=== PATIENT | female | born 1950 | race Two or more races ===

== ENCOUNTER 2024-10-05 16:25 | Emergency (ER) | payer OTHER ==
[~2024-10-05] VITALS: Ht 162.6 cm; Wt 50.3 kg
--- NOTE | 2024-10-05 16:34 | ED.PDOC ---
History of Present Illness HPI Comments 74 year old female presents to the ED with a chief complaint of fall injury onset today. Patient states she was sitting on a bench, in her front yard when she fell forward. Patient hit her forehead, currently has a laceration forehead, bruising around bilateral eyes. Denies any PMHx as well as LOC, nausea, v omiting, diarrhea, chest pain, shortness of breath, blurry vision. No other symptoms or modifying factors present at this time. Bleeding was controlled at time of evaluation. Time Seen by MD: 16:28 Reviewed Notes: Nurses Notes, Medications, Allergies Information Source: Patient, Spouse Mode of Arrival: Ambulatory Severity: Moderate Timing: Hours Duration: Since onset Prehospital treatment: None Past Medical History PAST MEDICAL HISTORY: Denies Surgical History: Denies all surgeries RODENT EXTERMINATOR History: No Pertinent RODENT EXTERMINATOR History Family History Family History: Reviewed,noncontributory to illness, No family hx of Cancer, No family hx of DM, No family hx of Heart gilberto, No family hx of HTN, No family hx ofKidney gilberto, No family hx of Liver gilberto, No family hx of Lung gilberto, No family hx of Stroke Social History Smoker: Non-Smoker Alcohol: Denies ETOH Use Drugs: Denies Drug Use Lives In: Home Constitutional: denies: chills, diaphoresis, fatigue, fever, malaise, sweats, weakness, others EENTM: denies: blurred vision, double vision, ear bleeding, ear discharge, ear drainage, ear pain, ear ringing, eye pain, eye redness, hearing loss, mouth pain, mouth swelling, nasal discharge, nose bleeding, nose congestion, nose pain, photophobia, tearing, throat pain, throat swelling, voice changes, others Respiratory: denies: cough, hemoptysis, orthopnea, SOB at rest, shortness of breath, SOB with excertion, stridor, wheezing, others Cardiovascular: denies: chest pain, dizzy spells, diaphoresis, Dyspnea on exertion, edema, irregular heart beat, left arm pain, lightheadedness, palp itations, PND, syncope, others Gastrointestinal: denies: abdomen distended, abdominal pain, blood streaked bowels, constipated, diarrhea, dysphagia, difficulty swallowing, hematemesis, melena, nausea, poor appetite, poor fluid intake, rectal bleeding, rectal pain, vomiting, others Genitourinary: denies: abnormal vagina bleeding, burning, dyspareunia, dysuria, flank pain, frequency, hematuria, incontinence, pain, , vagina discharge, urgency, others Neurological: reports: headache; denies: dizziness, fainting, left sided numbness, left sided weakness, numbness, paresthesia, pre-existing deficit, right sided numbness, right sided weakness, seizure, speech problems, tingling, tremors, weakness, others Musculoskeletal: denies: back pain, gout, joint pain, joint swelling, muscle pain, muscle stiffness, neck pain, others Integumetry: reports: bruises, laceration (forehead); denies: change in color, change in hair/nails, dryness, lesions, lumps, rash, wounds, others Allergic/Immunocompromised: denies: Difficulty Healing, Frequent Infections, Hives, Itching, others Hematologic/Lymphatic: denies: anemia, blood clots, easy bleeding, easy bruising, swollen glands, others Endocrine: denies: excessive hunger, excessive sweating, excessive thirst, excessive urination, flushing, intolerance to cold, intolerance to heat, unexplained weight gain, unexplained weight loss, others Psychiatric: denies: anxiety, bipolar disorder, depression, hopeless, panic disorder, schizophrenia, sleepless, suicidal, others All Other Systems: Reviewed and Negative Physical Exam General Appearance: Moderate Distress (Due to headache pain and anxiety related to her forehead laceration.), Normal HEENT: Head ( Patient arrives with a 8-10 cm laceration that extends up from the right side of her forehead to the hairline and moves laterally. No active bleed. No skull depressions or definitive deformities noted. Patient does have some ecchymosis on her left eye which he states is from a prior injury.), Normal ENT Inspection, Pharynx Normal, TMs Normal Neck: Full Range of Motion, Non-Tender, Normal, Normal Inspection Respiratory: Chest Non-Tender, Lungs Clear, No Accessory Muscle Use, No Respiratory Distress, Normal Breath Sounds Cardiovascular: No Edema, No JVD, No Murmur, No Gallop, Normal Peripheral Pulses, Regular Rate/Rhythm Breast Exam: Deferred Gastrointestinal: No Organomegaly, Non Tender, No Pulsatile Mass, Normal Bowel Sounds, Soft Genitalia: Deferred Pelvic: Deferred Rectal: Deferred Extremities: No calf tenderness, Normal capillary refill, No pedal edema Musculoskeletal : Apperance: Normal Neurologic: Alert, No Motor Deficits, Normal Affect, Normal Mood, No Sensory Deficits Cerebellar Function: NOT DONE Reflexes: NOT DONE Skin: Dry, Lacerations ( See HEENT for description of forehead laceration), Normal Color, Warm Lymphatic: No Adenopathy Was a procedure done? Was a procedure done?: Yes Sedation Sedation?: No Other Procedure Notes Closure of an 8-10 cm L-shaped laceration on the right side of the forehead extending into the hairline and then moving laterally towards the temporal region. 16 cc of 1% lidocaine was utilized for local anesthesia. Sterile field was placed. Copious irrigation performed. Twenty three 5-0 Ethilon sutures were utilized in a simple interrupted fashion to close the laceration. Minimal to moderate blood loss. Patient tolerated procedure well. Clean dressing applied. Differential Dx Considerations may include: Skull fracture, subdural hematoma, subarachnoid hemorrhage, facial laceration, head trauma X-Ray, Labs, Meds, VS Vital Signs Date Time Temp Pulse Resp B/P (MAP) Pulse Ox O2 Delivery O2 Flow Rate FiO2 10/05/24 16:47 98.5 97 20 124/78 (93) 96 98.5 X-Ray, Labs, Meds, VS Comment All studies performed the ED were evaluated by me personally. Head CT was unremarkable for any acute intracranial concerns or skull fracture. Patient tolerated laceration procedure well. Patient's tetanus is up-to-date and therefore, patient is 1st dose of antibiotics were dispensed tonight prior to discharge. Advised patient utilize antibiotics as directed and pain medication as needed. Patient should return to ED or primary care provider in approximatel y 8-10 days for re-evaluation and probable suture removal. Time of 1ST Reevaluation: 19:21 Reevaluation 1ST: Improved Consultation: PCP Patient Education/Counseling: Diagnosis, Treatment, Prognosis Family Education/Counseling: Diagnosis, Treatment, No Family Present Departure 1 Departure Time of Disposition: 19:22 Impression: Primary Impression: Head trauma Additional Impressions: Concussion Facial laceration Disposition: 01 HOME / SELF CARE / HOMELESS Condition: Stable Additional Instructions: Advised patient utilize antibiotics as directed until completion as well as pain medication as needed. Patient should follow up with primary care provider or return to the ED in 8-10 days for re-evaluation and probable suture removal. e-Prescriptions Hydrocodone-Acetaminophen (Hydrocodone Bitartrate/AC 5-325 mg) 1 Tab Tab 1 TAB PO Q6HP PRN, #15 TAB Prov: KOREY VALADEZ PAC 10/05/24 Ibuprofen Micronized (Ibuprofen) 600 Mg Tab 600 MG PO Q6HP PRN, #30 TAB Prov: KOREY VALADEZ PAC 10/05/24 Cephalexin (KEFLEX CAPSULE) 250 Mg Cp 1 CAP PO QID for 7 Days, #28 CAP Prov: KOREY VALADEZ PAC 10/05/24 Discharged With: Self, Spouse Critical Care Note Critical Care Time?: No Stability Stability form required: No Heart Score Heart Score: Heart Score Response (Comments) Value History N/A 0 EKG N/A 0 Age N/A 0 Risk Factors N/A 0 Troponin N/A 0 Total 0 I personally scribed for KOREY VALADEZ PAC ([email or web address]) on 10/05/24 at 16:34. Electronically submitted by Odette Anand ([email or web address]). KOREY VALADEZ PAC Oct 05, 2024 16:34
--- NOTE | 2024-10-05 17:22 | DVH ---
EXAM: CT HEAD WITHOUT CONTRAST INDICATION: Head trauma, right-sided forehead TECHNIQUE: CT of the head without intravenous contrast. Radiation Dose Information: CT Dose: CTDI volume is 53.55 mGy. Dose-length product is 948.26 mGy*cm The dose indicators for CT are the volume Computed Tomography (CT) Dose Index (CTDIvol) and the Dose Length Product (DLP), and are measured in units of mGy and mGy-cm, respectively. These indicators are not patient dose, but values generated from the CT scanner acquisition factors. The report includes radiation exposure data for exposures received during this examination. COMPARISON: None FINDINGS: There is no evidence of acute intracranial hemorrhage, extra-axial collection, mass effect, midline s hift, herniation or hydrocephalus. Ischemic changes in the deep white matter of the right and left parietal lobes there are no prior elvira dies for comparison The ventricles, sulci and cisterns are age appropriate. The arteaga-white differentiation is intact. Patchy periventricular and subcortical white matter hypoattenuation is nonspecific but may be related to small vessel ischemic disease. The visualized paranasal sinuses and mastoid air cells are clear. The surrounding soft tissues and osseous structures are unremarkable. IMPRESSION: 1. Deep white matter ischemia in the right and left parietal lobes 2. No acute intracranial hemorrhage. 3. Edema in the soft tissues above the right eye with possible laceration. 4. No skull fracture.
[2024-10-05] MEDS ORDERED: CEPH250C PO (19:23)
[2024-10-05] MEDS ORDERED: HYDR-4902 PO (19:23)
[2024-10-05] MEDS ORDERED: IBUP1TAB5 PO (19:23)
[2024-10-05 20:27] VITALS: PULSE 99; RESP 18; TEMP 98.8; O2SAT 99
[2024-10-05] MEDS: LIDOCAINE 1% HCL (LOCAL ANESTH.) INJ 20ML MDV IJ ONE (20:29)
[2024-10-05] MEDS: HYDROmorphone HCL 2 MG/ML VL/or syr IM ONE (20:33)
[2024-10-05] MEDS: CEPHALEXIN 250 MG CAP PO ONE (20:34)
[2024-10-05] MEDS: HYDROcodone-ACET 10/325MG TAB PO ONE (20:47)
[2024-10-05 21:23] VITALS: BP 130/86; PULSE 107; RESP 16; O2SAT 96
== END 2024-10-05 21:37 | disposition home or self-care (01) ==
LOC: ER 16:25
DX: S01.81XA Laceration without foreign body of other part of head, initial encounter (principal); S06.0X0A Concussion without loss of consciousness, initial encounter; W18.39XA Other fall on same level, initial encounter; Y93.89 Activity, other specified; Y92.89 Other specified places as the place of occurrence of the external cause; Y99.8 Other external cause status
CPT/HCPCS: 12015; 70450; 96372; 99285; J1171

== ENCOUNTER 2024-10-13 16:45 | Emergency (ER) | payer OTHER ==
[~2024-10-13] VITALS: Ht 162.6 cm; Wt 56.8 kg
[~2024-10-13 16:45] MED LIST: CEPH250C PO; HYDR-4902 PO; IBUP1TAB5 PO
--- NOTE | 2024-10-13 21:34 | ED.PDOC ---
History of Present Illness(SKN HPI Comments HERE FOR STITCHES REMOVAL TO FOREHEAD WAS PLACED 8 DAYS AGO Chief Complaint: Wound Check Time Seen by MD: 17:40 Primary Care Provider: NONE History of Present Illness: Nurses Notes, Medications, Allergies Allergies: Coded Allergies: Penicillins (Verified Allergy, Severe, 10/13/24) Home Meds Active Scripts Hydrocodone-Acetaminophen (Hydrocodone Bitartrate/AC 5-325 mg) 1 Tab Tab, 1 TAB PO Q6HP PRN, #15 TAB Prov:KOREY VALADEZ PAC 10/05/24 Ibuprofen Micronized (Ibuprofen) 600 Mg Tab, 600 MG PO Q6HP PRN, #30 TAB Prov:KOREY VALADEZ PAC 10/05/24 Cephalexin (KEFLEX CAPSULE) 250 Mg Cp, 1 CAP PO QID for 7 Days, #28 CAP Prov:KOREY VALADEZ PAC 10/05/24 Information Source: Patient Mode of Arrival: Ambulatory Past Medical History PAST MEDICAL HISTORY: Denies Surgical History: Denies all surgeries HOME ENERGY CONSULTANT History: No Pertinent HOME ENERGY CONSULTANT History Family History Family History: Reviewed,noncontributory to illness, No family hx of Cancer, No family hx of DM, No family hx of Heart gilberto, No family hx of HTN, No family hx ofKidney gilberto, No family hx of Liver gilberto, No family hx of Lung gilberto, No family hx of Stroke Social History Smoker: Non-Smoker Alcohol: Denies ETOH Use Drugs: Denies Drug Use Lives In: Home Constitutional: denies: chills, diaphoresis, fatigue, fever, malaise, sweats, weakness, others EENTM: denies: blurred vision, double vision, ear bleeding, ear discharge, ear drainage, ear pain, ear ringing, eye pain, eye redness, hearing loss, mouth pain, mouth swelling, nasal discharge, nose bleeding, nose congestion, nose pain, photophobia, tearing, throat pain, throat swelling, voice changes, others Respiratory: denies: cough, hemoptysis, orthopnea, SOB at rest, shortness of breath, SOB with excertion, stridor, wheezing, others Cardiovascular: denies: chest pain, dizzy spells, diaphoresis, Dyspnea on exertion, edema, irregular heart beat, left arm pain, lightheadedness, palpitations, PND, syncope, others Gastrointestinal: denies: abdomen distended, abdominal pain, blood streaked bowels, constipated, diarrhea, dysphagia, difficulty swallowing, hematemesis, melena, nausea, poor appetite, poor fluid intake, rectal bleeding, rectal pain, vomiting, others Genitourinary: denies: abnormal vagina bleeding, burning, dyspareunia, dysuria, flank pain, frequency, hematuria, incontinence, pain, , vagina discharge, urgency, others Neurological: denies: dizziness, fainting, headache, left sided numbness, left sided weakness, numbness, paresthesia, pre-existing deficit, right sided numbness, right sided weakness, seizure, speech problems, tingling, tremors, weakness, others Musculoskeletal: denies: back pain, gout, joint pain, joint swelling, muscle pain, muscle stiffness, neck pain, others Integumetry: reports: laceration (SUTURES IN PLACE); denies: bruises, change in color, change in hair/nails, dryness, lesions, lumps, rash, wounds, others Allergic/Immunocompromised: denies: Difficulty Healing, Frequent Infections, Hives, Itching, others Hematologic/Lymphatic: denies: anemia, blood clots, easy bleeding, easy bruising, swollen glands, others Endocrine: denies: excessive hunger, excessive sweating, excessive thirst, excessive urination, flushing, intolerance to cold, intolerance to heat, unexplained weight gain, unexplained weight loss, others Psychiatric: denies: anxiety, bipolar disorder, depression, hopeless, panic disorder, schizophrenia, sleepless, suicidal, others Physical Exam General Appearance: No Apparent Distress, Normal HEENT: Pharynx Normal Neck: Full Range of Motion, Normal Respiratory: Lungs Clear, No Respiratory Distress, Normal Breath Sounds Cardiovascular: No Murmur, Normal Peripheral Pulses, Regular Rate/Rhythm Breast Exam: Deferred Gastrointestinal: Non Tender, Soft Genitalia: Deferred Pelvic: Deferred Rectal: Deferred Extremities: Normal capillary refill, Normal inspection, Normal range of motion, Non-tender, No pedal edema Musculoskeletal : Apperance: Normal Neurologic: Alert, fisher diver net II-XII nml as Tested, No Motor Deficits, Normal Affect, Normal Mood, No Sensory Deficits Cerebellar Function: Normal Reflexes: Normal Skin: Dry, Lacerations (HE 7 SUTURES INTACT), Normal Color, Warm Lymphatic: No Adenopathy Was a procedure done? Was a procedure done?: Yes Sedation Sedation?: No Informed consent obtained: Yes Other Procedure Procedure SUTURE REMOVAL Success 27 SUTURES REMOVED AND INTACT NO NOTED BLEEDING PATIENT TOLERATED WELL. Informed consent obtained: Yes Risks, benefits, and alternati: Yes Differential Diagnosis (INTG) Differential Diagnosis: Contusion, Laceration X-Ray, Labs, Meds, VS Vital Signs Date Time Temp Pulse Resp B/P (MAP) Pulse Ox O2 Delivery O2 Flow Rate FiO2 10/13/24 16:59 98.3 117 16 183/94 (123) 96 98.3 X-Ray, Labs, Meds, VS Comment ALL SUTURES REMOVED AND INTACT. ADVISED PATIENT TO RETURN TO THE ER FOR ANY NEW ONSET OF UNCONTROLLED BLEEDING OR SIGNS AND SYMPTOMS OF INFECTION FOLLOW UP WITH PCP IN 1-2 DAYS PATIENT INDICATES UNDERSTANDING AND AGREES WITH DISCHARGE PLAN OF CARE. Time of 1ST Reevaluation: 21:29 Reevaluation 1ST: Improved Patient Education/Counseling: Diagnosis, Treatment, Prognosis, Need For Follow Up Family Education/Counseling: No Family Present Departure 1 Departure Time of Disposition: 21:29 Impression: Primary Impression: Visit for suture removal Disposition: 01 HOME / SELF CARE / HOMELESS Condition: Stable Discharged With: Self Critical Care Note Critical Care Time?: No Stability Stability form required: ISSAC Lim Oct 13, 2024 21:33
[2024-10-13 21:56] VITALS: BP 197/103; PULSE 86; RESP 14; TEMP 97.5; O2SAT 97
[2024-10-13] MEDS: cloNIDine HCL 0.1 MG TAB PO ONE (21:58)
== END 2024-10-13 23:10 | disposition home or self-care (01) ==
LOC: ER 16:48
DX: S01.81XD Laceration without foreign body of other part of head, subsequent encounter (principal); Z79.899 Other long term (current) drug therapy; Z88.0 Allergy status to penicillin; X58.XXXD Exposure to other specified factors, subsequent encounter